=== PATIENT | female | born 1980 | race Caucasian/White ===

== ENCOUNTER 2019-06-24 17:02 | Emergency (ER) | payer SELFPAY ==
[2019-06-24] MEDS ORDERED: LIDOCAINE 1%/EPINEPHRINE INJ 20 ML VIAL INJ ONE (18:10)
[2019-06-24] MEDS ORDERED: DIPH/PERTUSS(ACELL)/TETANUS VAC/PF 0.5 ML SYR (>=10YO) IM ONE (18:10)
[2019-06-24] MEDS ORDERED: ONDANSETRON 4 MG TAB.RAPDIS PO ONE (18:10)
[2019-06-24] MEDS ORDERED: HYDROCODONE/ACETAMINOPHEN 5-325 MG TABLET PO ONE (18:12)
[2019-06-24] MEDS ORDERED: HYDROCODONE/ACETAMINOPHEN 5-325 MG (6 TAB/ER DISP) PO PRN (19:17)
--- NOTE | 2019-06-24 19:21 | ER Document Report ---
ED Wound - General Chief Complaint: Laceration Stated Complaint: LEG LACERATION Time Seen by Provider: 06/24/19 17:38 Notes: 38-year-old female presents the emergency department with laceration to her right medial ankle sustained while cutting the grass at approximately 4 PM today. Her fianc thinks that a piece of metal may have been projected from the blades striking her. She is able to bear weight on it and she has sensation is has a severe throbbing pain to the area. She does not know when her last tetanus was. Patient has full range of motion and normal distal neurovascular exam. TRAVEL OUTSIDE OF THE [place] IN LAST 30 DAYS: No - Related Data Allergies/Adverse Reactions: No Known Allergies Allergy (Unverified 06/24/19 18:54) Past Medical History - Social History Smoking Status: Current Every Day Smoker Chew tobacco use (# tins/day): No Frequency of alcohol use: Social Drug Abuse: None Family History: None Patient has suicidal ideation: No Patient has homicidal ideation: No Renal/ Medical History: Denies: Hx Peritoneal Dialysis Review of Systems - Review of Systems Constitutional: No symptoms reported EENT: No symptoms reported Cardiovascular: No symptoms reported Respiratory: No symptoms reported Gastrointestinal: No symptoms reported Genitourinary: No symptoms reported Female Genitourinary: No symptoms reported Musculoskeletal: See HPI Skin: See HPI Hematologic/Lymphatic: No symptoms reported Neurological/Psychological: See HPI Physical Exam - Vital signs Vitals: Temp Pulse Resp BP Pulse Ox 98.4 F 93 18 129/71 H 95 06/24/19 17:15 06/24/19 17:15 06/24/19 17:15 06/24/19 17:15 06/24/19 17:15 - Notes Notes: PHYSICAL EXAMINATION: Reviewed vital signs and charting by RN GENERAL: Alert, interacts well. No acute distress. HEAD: Normocephalic, atraumatic. EYES: Pupils equal and round. Extraocular movements intact. ENT: Oral mucosa moist, tongue midline. NECK: Full range of motion. Trachea midline. EXTREMITIES: Moves all 4 extremities spontaneously. No edema, No cyanosis. PSYCH: Normal affect, normal mood. SKIN: Warm, dry, normal turgor. No rashes or lesions noted. Horizontal 4 cm laceration on the medial aspect of the right leg just proximal to the medial malleolus Course - Re-evaluation Re-evalutation: 06/24/19 19:20 Wound was anesthetized with lidocaine 1% with epinephrine and copiously irrigated and explored. There is no evidence of foreign body present. Wound was closed with 4-0 Ethilon using 7 sutures total. Patient was given a tetanus booster and a short course of pain medication. Patient was given routine care instructions and strict return precautions. She tolerated procedure well. She is ready for discharge. - Vital Signs Vital signs: Temp Pulse Resp BP Pulse Ox 98.4 F 93 18 129/71 H 95 06/24/19 17:15 06/24/19 17:15 06/24/19 17:15 06/24/19 17:15 06/24/19 17:15 Procedures - Laceration/Wound Repair Right Medial Ankle Wound length (cm): 4 Wound's Depth, Shape: Linear Laceration pre-procedure: Sterile PPE donned Anesthetic type: 1% Lidocaine w/epi Wound Debrided: Minimal Wound Repaired With: Sutures Suture Size/Type: 4:0, Ethilon Post-procedure NV exam normal: Yes Complications: No Discharge - Discharge Clinical Impression: Laceration Condition: Good Disposition: HOME, SELF-CARE Instructions: Antibiotic Ointment Protection ([facility]), Laceration Care ([facility]), Oral Narcotic Medication ([facility]), Soap Cleansing ([facility]), Tetanus Immunization Given ([facility]) Additional Instructions: Please return to your primary doctor, the ED, or an urgent care in 7 days for suture removal. Return immediately if you develop spreading redness around the wound, pus from the wound, worsening pain, or a fever of >101. Keep the area clean and dry. Wash gently with soap and water twice daily and cover with antibiotic ointment.
[2019-06-24 19:33] VITALS: BP 127/79
== END 2019-06-24 19:34 | disposition home or self-care (01) ==
LOC: ER 17:02
PROC: 0HQKXZZ Repair Right Lower Leg Skin, External Approach (ICD-10-PCS; principal; 2019-06-24)
DX: S91.011A Laceration without foreign body, right ankle, initial encounter (principal); W28.XXXA Contact with powered lawn mower, initial encounter; F17.200 Nicotine dependence, unspecified, uncomplicated
CPT/HCPCS: 90715; 12002; S0119; J3490; 90471; 99282